=== PATIENT | male | born 1935 | race African-American/Black ===

== ENCOUNTER 2017-01-15 12:40 | Emergency (ER) | payer BC, MEDICAID ==
[~2017-01-15] VITALS: Ht 175.3 cm; Wt 75.0 kg
[2017-01-15] MEDS ORDERED: ACETAMINOPHEN WITH CODEINE 300/30MG TABLET PO ONE (14:00)
[2017-01-15] MEDS ORDERED: METHOCARBAMOL 500MG TABLET PO ONE (14:00)
[2017-01-15] MEDS ORDERED: KETOROLAC 60MG/2ML VIAL IM ONE (14:00)
[2017-01-15 16:26] VITALS: BP 138/74
== END 2017-01-15 16:28 | disposition home or self-care (01) ==
LOC: ER 12:41
DX: S30.1XXA Contusion of abdominal wall, initial encounter (principal); I10 Essential (primary) hypertension; Z98.1 Arthrodesis status; V43.52XA Car driver injured in collision with other type car in traffic accident, initial encounter; Y92.488 Other paved roadways as the place of occurrence of the external cause
CPT/HCPCS: 71101; 72100; 96372; 99284; J1885

== ENCOUNTER 2018-02-08 22:31 | Inpatient (IN) | payer BC, MEDICAID ==
[~2018-02-08] VITALS: Ht 180.3 cm; Wt 79.5 kg
[2018-02-09] MEDS ORDERED: LIDOCAINE HCL 1%/EPI 1:200,000 30 ML VIAL MC ONE
[2018-02-09 00:56] LABS: BASOPHILS % 0.1 % (0.0-2.0); HEMATOCRIT. 34.4 % (42.0-52.0); HEMOGLOBIN. 11.2 g/dL (14.0-18.0); LYMPHOCYTES % 4.6 % (20.0-50.0); MEAN CORPUSCULAR HEMOGLOBIN 27.2 pg (28.0-32.0); MEAN CORPUSCULAR VOLUME 83.6 fL (80.0-94.0); MEAN PLATELET VOLUME 8.4 fl (7.4-10.4); MONOCYTES % 6.7 % (2.0-8.0); NEUTROPHILS % 88.6 % (40.0-76.0); PLATELET 170 x1000/uL (130-400); RED BLOOD CELL COUNT 4.11 mill/uL (4.7-6.1); RED CELL DISTRIBUTION WIDTH 14.7 % (11.6-14.6)
[2018-02-09 00:59] LABS: CHLORIDE 109 mEq/L (98-107)
[2018-02-09 01:02] LABS: AMMONIA < 10 uMol/L (<32)
[2018-02-09 01:03] LABS: ETHANOL BLOOD < 10 mg/dL
[2018-02-09 01:15] LABS: PROTHROMBIN TIME 45.6 sec (9.4-11.6)
[2018-02-09 01:19] LABS: INR 4.4
[2018-02-09] MEDS ORDERED: VANCOMYCIN 1 G PREMIX 200 ML IV ONE (01:30)
[2018-02-09] MEDS ORDERED: PHYTONADIONE 10MG/ML AMP IM NR (01:45)
[2018-02-09] MEDS ORDERED: ACETAMINOPHEN 325MG TABLET PO ONE (01:45)
[2018-02-09 04:50] VITALS: BP 141/75
[2018-02-09] MEDS ORDERED: HYDROCODONE/ACETAMINOPHEN 5/325MG TABLET PO PRN (05:15)
[2018-02-09] MEDS ORDERED: MORPHINE SULFATE 2 MG/ML CPJ (NOT FOR IM USE) IV PRN (05:15)
[2018-02-09] MEDS: DEXT 5%/0.45% NACL KCL 20MEQ/L 1,000 ML IV SCH ×2 (06:36→15:25)
[2018-02-09 08:00] VITALS: BP 142/76
[2018-02-09 12:00] VITALS: BP 132/7
[2018-02-09 16:00] VITALS: BP 130/79
[2018-02-09] MEDS ORDERED: VANCOMYCIN 750 MG PREMIX 150 ML IV SCH (16:00)
[2018-02-09 16:49] VITALS: BP 130/79
== END 2018-02-09 18:25 | disposition short-term general hospital (02) | DRG 872 ==
LOC: ER 22:42 → 8WST 02-09 01:33 → EDBEDREQ 02-09 01:38 → EDBEDREQSVC 02-09 01:38 → ENRESERV 02-09 02:08 → SUPCPDRO 02-09 04:47
PROVIDERS: ADMIT Internal Medicine Critical Care Medicine; ATTEND Internal Medicine Critical Care Medicine
DX: A41.9 Sepsis, unspecified organism (principal); D68.9 Coagulation defect, unspecified; L03.116 Cellulitis of left lower limb; F03.90 Unspecified dementia, unspecified severity, without behavioral disturbance, psychotic disturbance, mood disturbance, and anxiety; N18.3 Chronic kidney disease, stage 3 (moderate); I12.9 Hypertensive chronic kidney disease with stage 1 through stage 4 chronic kidney disease, or unspecified chronic kidney disease; T45.515A Adverse effect of anticoagulants, initial encounter; Y92.89 Other specified places as the place of occurrence of the external cause; Z79.01 Long term (current) use of anticoagulants; Z86.711 Personal history of pulmonary embolism; Z86.718 Personal history of other venous thrombosis and embolism; Z87.891 Personal history of nicotine dependence; Z79.899 Other long term (current) drug therapy
CPT/HCPCS: 20610; 36415; 70450; 71045; 73700; 80053; 82140; 83605; 83690; 83880; 84443; 84484; 85025; 85610; 87040; 87070; 87205; 93005; 93970; 96365; 96372; 99285; G0482; J3370; J3430

== ENCOUNTER 2019-09-10 22:31 | Inpatient (IN) | payer BC, MEDICAID ==
[~2019-09-10] VITALS: Ht 180.3 cm; Wt 87.7 kg
[2019-09-10] MEDS ORDERED: SODIUM CHLORIDE 0.9% 1,000 ML IV ONE (23:34)
[2019-09-11] VITALS (58 sets, daily range): BP systolic 105–151; BP diastolic 62–92
[2019-09-11 00:25] LABS: BASOPHILS % 0.5 % (0.0-2.0); EOSINOPHILS % 0.5 % (0.0-5.0); HEMATOCRIT. 41.2 % (42.0-52.0); HEMOGLOBIN. 13.5 g/dL (14.0-18.0); LYMPHOCYTES % 12.2 % (20.0-50.0); MEAN CORPUSCULAR HEMOGLOBIN 27.8 pg (28.0-32.0); MEAN CORPUSCULAR VOLUME 85.1 fL (80.0-94.0); MEAN PLATELET VOLUME 8.9 fl (7.4-10.4); MONOCYTES % 4.7 % (2.0-8.0); NEUTROPHILS % 82.1 % (40.0-76.0); PLATELET 122 x1000/uL (130-400); RED BLOOD CELL COUNT 4.85 mill/uL (4.7-6.1); RED CELL DISTRIBUTION WIDTH 15.3 % (11.6-14.6)
[2019-09-11] MEDS ORDERED: OLANZAPINE 10 MG/VIAL IM NR (00:30)
[2019-09-11 00:31] LABS: CHLORIDE 105 mEq/L (98-107)
[2019-09-11 00:36] LABS: PROTHROMBIN TIME 48.3 sec (9.6-11.0)
[2019-09-11 00:46] LABS: INR 5.1
[2019-09-11] MEDS ORDERED: ADENOSINE 3 MG/ML 2ML VIAL IV ONE (01:00)
[2019-09-11] MEDS ORDERED: LORAZEPAM 2MG/ML CPJ IV ONE (01:00)
[2019-09-11] MEDS ORDERED: DIGOXIN 500MCG/2ML AMP IV ONE (01:30)
[2019-09-11] MEDS ORDERED: HYDRALAZINE 20MG/ML VIAL IV ONE (02:00)
[2019-09-11] MEDS ORDERED: MANNITOL 20% 250 ML IV ONE (03:00)
[2019-09-11] MEDS ORDERED: LEVETIRACETAM 500MG PREMIX 100 ML IV ONE (03:00)
[2019-09-11] MEDS ORDERED: DEXAMETHASONE 10 MG/ML VIAL IV ONE (03:00)
[2019-09-11] MEDS ORDERED: NICARDIPINE 100 MG in SODIUM CHLORIDE 0.9% 60 ML IV ONE (03:00)
[2019-09-11] MEDS ORDERED: SUCCINYLCHOLINE CHLORIDE 200MG/10ML IV ONE (03:30)
[2019-09-11 04:26] LABS: BG BASE EXCESS -0.2 mmol/L (-2.0-2.0); BG CARBOXYHEMOGLOBIN 0.3 % (0.5-1.5); BG FRACTION INSPIRED OXYGEN 50; BG HCO3 ACT 23.5 mmol/L (22.0-26.0); BG METHEMOGLOBIN 0.3 % (0.0-1.5); BG OXYHEMOGLOBIN 98.4 % (94.0-97.0); BG PCO2 35.7 mmHg (35.0-45.0); BG PH 7.437 (7.350-7.450); BG PO2 206.3 mmHg (75.0-100.0); BG SAMPLE SITE RIGHT RADIAL; BG TIDAL VOLUME(mL) 550 mL; BG TOTAL HEMOGLOBIN 13.4 g/dL (12.0-18.0); BG VENT MODE VENT - A/C; BG VENT RATE 12 set
[2019-09-11] MEDS ORDERED: MORPHINE SULFATE 2 MG/ML CPJ (NOT FOR IM USE) IV SCH (06:50)
[2019-09-11 08:31] LABS: HEMATOCRIT. 38.3 % (42.0-52.0); HEMOGLOBIN. 12.7 g/dL (14.0-18.0); MEAN CORPUSCULAR HEMOGLOBIN 27.9 pg (28.0-32.0); MEAN CORPUSCULAR VOLUME 84.2 fL (80.0-94.0); MEAN PLATELET VOLUME 9.2 fl (7.4-10.4); PLATELET 105 x1000/uL (130-400); RED BLOOD CELL COUNT 4.55 mill/uL (4.7-6.1); RED CELL DISTRIBUTION WIDTH 15.1 % (11.6-14.6)
[2019-09-11] MEDS ORDERED: NICARDIPINE 100 MG in SODIUM CHLORIDE 0.9% 60 ML IV PRN (09:00)
[2019-09-11 09:06] LABS: INR 1.7; PARTIAL THROMBOPLASTIN TIME 27.9 sec (23.4-31.0); PROTHROMBIN TIME 16.6 sec (9.6-11.0)
[2019-09-11] MEDS: DEXT 5%/LACTATED RINGERS 1,000 ML IV SCH (10:26)
[2019-09-11] MEDS: FAMOTIDINE 20MG/2ML VIAL IV SCH (10:26)
[2019-09-11] MEDS ORDERED: LEVETIRACETAM 500 MG in SODIUM CHLORIDE 0.9% 100 ML IV NR (10:30)
[2019-09-11 11:15] LABS: PLATELET ESTIMATE DECREASED
[2019-09-11] MEDS: DEXAMETHASONE 10 MG/ML VIAL IV SCH ×3 (12:12→23:24)
[2019-09-11] MEDS: CEFAZOLIN 1000MG PREMIX 50 ML IV SCH ×2 (13:52→21:43)
[2019-09-11] MEDS ORDERED: CEFAZOLIN SODIUM 1000MG/VIAL IV SCH (14:00)
[2019-09-11] MEDS: LEVETIRACETAM 500 MG in SODIUM CHLORIDE 0.9% 100 ML IV SCH (20:38)
[2019-09-12] VITALS (94 sets, daily range): BP systolic 100–156; BP diastolic 49–90
[2019-09-12] MEDS: DEXT 5%/LACTATED RINGERS 1,000 ML IV SCH (05:09)
[2019-09-12 06:04] LABS: HEMATOCRIT. 36.1 % (42.0-52.0); HEMOGLOBIN. 11.9 g/dL (14.0-18.0); INR 2.5; MEAN CORPUSCULAR HEMOGLOBIN 27.6 pg (28.0-32.0); MEAN CORPUSCULAR VOLUME 83.9 fL (80.0-94.0); MEAN PLATELET VOLUME 9.1 fl (7.4-10.4); PLATELET 115 x1000/uL (130-400)
[2019-09-12 06:09] LABS: CHLORIDE 111 mEq/L (98-107)
[2019-09-12] MEDS: DEXAMETHASONE 10 MG/ML VIAL IV SCH ×4 (06:23→23:45)
[2019-09-12] MEDS: CEFAZOLIN 1000MG PREMIX 50 ML IV SCH (06:23)
[2019-09-12 07:49] LABS: PLATELET ESTIMATE SLIGHTLY DECREASED
[2019-09-12] MEDS: FAMOTIDINE 20MG/2ML VIAL IV SCH (09:01)
[2019-09-12] MEDS: LEVETIRACETAM 500 MG in SODIUM CHLORIDE 0.9% 100 ML IV SCH ×2 (09:01→21:21)
[2019-09-12 09:19] LABS: BG BASE EXCESS 3.6 mmol/L (-2.0-2.0); BG CARBOXYHEMOGLOBIN 0.4 % (0.5-1.5); BG DEOXYHEMOGLOBIN 0.8 % (0.0-5.0); BG FRACTION INSPIRED OXYGEN 40; BG HCO3 ACT 26.9 mmol/L (22.0-26.0); BG METHEMOGLOBIN 0.2 % (0.0-1.5); BG OXYGEN SATURATION 99.2 % (92.0-98.5); BG OXYHEMOGLOBIN 98.6 % (94.0-97.0); BG PCO2 36.3 mmHg (35.0-45.0); BG PH 7.488 (7.350-7.450); BG PO2 175.3 mmHg (75.0-100.0); BG SAMPLE SITE RIGHT RADIAL; BG TIDAL VOLUME(mL) 550 mL; BG TOTAL HEMOGLOBIN 12.9 g/dL (12.0-18.0); BG VENT MODE VENT - A/C; BG VENT RATE 12 set
[2019-09-12] MEDS: ALBUTEROL (0.083%) 2.5MG/3ML NEB HHN SCH ×3 (11:02→20:51)
[2019-09-12] MEDS: NITROPRUSSIDE 50 MG in SODIUM CHLORIDE 0.9% 250 ML IV PRN (15:26)
[2019-09-12] MEDS ORDERED: LABETALOL 5MG/ML SYR 20 MG/4 ML SYRINGE IV PRN (18:30)
[2019-09-13] VITALS (100 sets, daily range): BP systolic 102–179; BP diastolic 57–96
[2019-09-13] MEDS ORDERED: LABETALOL 5MG/ML SYR 20 MG/4 ML SYRINGE IV SCH (01:00)
[2019-09-13] MEDS: DEXT 5%/LACTATED RINGERS 1,000 ML IV SCH (01:44)
[2019-09-13] MEDS: ALBUTEROL (0.083%) 2.5MG/3ML NEB HHN SCH ×4 (02:07→21:28)
[2019-09-13] MEDS: DEXAMETHASONE 10 MG/ML VIAL IV SCH (05:47)
[2019-09-13 05:52] LABS: HEMATOCRIT. 34.7 % (42.0-52.0); HEMOGLOBIN. 11.4 g/dL (14.0-18.0); MEAN CORPUSCULAR HEMOGLOBIN 27.7 pg (28.0-32.0); MEAN CORPUSCULAR VOLUME 84.6 fL (80.0-94.0); MEAN PLATELET VOLUME 9.2 fl (7.4-10.4); PLATELET 101 x1000/uL (130-400); RED CELL DISTRIBUTION WIDTH 15.2 % (11.6-14.6)
[2019-09-13 05:58] LABS: INR 1.9
[2019-09-13 06:01] LABS: CHLORIDE 114 mEq/L (98-107)
[2019-09-13 08:11] LABS: BG BASE EXCESS 4.8 mmol/L (-2.0-2.0); BG CARBOXYHEMOGLOBIN 0.3 % (0.5-1.5); BG DEOXYHEMOGLOBIN 1.5 % (0.0-5.0); BG METHEMOGLOBIN 0.2 % (0.0-1.5); BG OXYGEN SATURATION 98.5 % (92.0-98.5); BG PH 7.544 (7.350-7.450); BG PO2 145.2 mmHg (75.0-100.0); BG SAMPLE SITE RIGHT RADIAL; BG TIDAL VOLUME(mL) 550 mL; BG TOTAL HEMOGLOBIN 11.7 g/dL (12.0-18.0); BG VENT MODE VENT - A/C; BG VENT RATE 12 set
[2019-09-13] MEDS: FAMOTIDINE 20MG/2ML VIAL IV SCH (08:48)
[2019-09-13] MEDS: LEVETIRACETAM 500 MG in SODIUM CHLORIDE 0.9% 100 ML IV SCH ×2 (08:48→20:52)
[2019-09-13] MEDS ORDERED: POTASSIUM CHLORIDE INJ 40 MEQ in DEXT 5% WATER 250 ML IV SCH (09:00)
[2019-09-13] MEDS ORDERED: PHYTONADIONE 10MG/ML AMP IM NR (09:30)
[2019-09-13 10:25] LABS: PLATELET ESTIMATE DECREASED
[2019-09-13] MEDS: HYDRALAZINE 20MG/ML VIAL IV PRN (11:15)
[2019-09-13] MEDS: DEXAMETHASONE 4MG/ML 1ML VIAL IV SCH ×3 (11:39→23:29)
[2019-09-13] MEDS: NITROPRUSSIDE 50 MG in SODIUM CHLORIDE 0.9% 250 ML IV PRN ×2 (11:52→20:53)
[2019-09-13] MEDS: MORPHINE SULFATE 2 MG/ML CPJ (NOT FOR IM USE) IV PRN (12:24)
[2019-09-13] MEDS: HYDRALAZINE HCL 50MG TABLET NG SCH (20:11)
[2019-09-13] MEDS: METOPROLOL TARTRATE 25MG TABLET NG SCH (20:11)
[2019-09-13] MEDS: ATORVASTATIN CALCIUM 20MG TABLET NG SCH (20:11)
[2019-09-14] VITALS (104 sets, daily range): BP systolic 90–195; BP diastolic 53–105
[2019-09-14] MEDS: DEXT 5%/LACTATED RINGERS 1,000 ML IV SCH ×3 (01:07→22:13)
[2019-09-14] MEDS: NITROPRUSSIDE 50 MG in SODIUM CHLORIDE 0.9% 250 ML IV PRN ×4 (03:11→22:32)
[2019-09-14] MEDS: ALBUTEROL (0.083%) 2.5MG/3ML NEB HHN SCH ×4 (03:20→20:09)
[2019-09-14] MEDS: DEXAMETHASONE 4MG/ML 1ML VIAL IV SCH ×3 (05:20→17:26)
[2019-09-14 06:23] LABS: HEMATOCRIT. 32.3 % (42.0-52.0); HEMOGLOBIN. 10.6 g/dL (14.0-18.0); MEAN CORPUSCULAR HEMOGLOBIN 27.8 pg (28.0-32.0); MEAN CORPUSCULAR VOLUME 84.7 fL (80.0-94.0); MEAN PLATELET VOLUME 9.6 fl (7.4-10.4); PLATELET 115 x1000/uL (130-400); RED BLOOD CELL COUNT 3.81 mill/uL (4.7-6.1); RED CELL DISTRIBUTION WIDTH 15.2 % (11.6-14.6)
[2019-09-14 06:24] LABS: INR 1.7; PROTHROMBIN TIME 16.8 sec (9.6-11.0)
[2019-09-14 06:28] LABS: CHLORIDE 114 mEq/L (98-107)
[2019-09-14] MEDS: HYDRALAZINE 20MG/ML VIAL IV PRN ×2 (09:05→17:26)
[2019-09-14] MEDS: FAMOTIDINE 20MG/2ML VIAL IV SCH (09:05)
[2019-09-14] MEDS: LEVETIRACETAM 500 MG in SODIUM CHLORIDE 0.9% 100 ML IV SCH ×2 (09:05→21:35)
[2019-09-14] MEDS: HYDRALAZINE HCL 50MG TABLET NG SCH ×2 (09:06→21:34)
[2019-09-14] MEDS: METOPROLOL TARTRATE 25MG TABLET NG SCH ×2 (09:06→21:34)
[2019-09-14 09:11] LABS: BG BASE EXCESS 0.4 mmol/L (-2.0-2.0); BG CARBOXYHEMOGLOBIN 0.1 % (0.5-1.5); BG DEOXYHEMOGLOBIN 2.7 % (0.0-5.0); BG FRACTION INSPIRED OXYGEN 35; BG METHEMOGLOBIN 0.2 % (0.0-1.5); BG OXYGEN SATURATION 97.3 % (92.0-98.5); BG PCO2 30.9 mmHg (35.0-45.0); BG PO2 92.4 mmHg (75.0-100.0); BG SAMPLE SITE RIGHT RADIAL; BG TIDAL VOLUME(mL) 500 mL; BG TOTAL HEMOGLOBIN 11.8 g/dL (12.0-18.0); BG VENT MODE VENT - A/C; BG VENT RATE 10 set
[2019-09-14] MEDS ORDERED: LIDOCAINE HCL 1% 20ML VIAL (Pyxis) INJ ONE (09:54)
[2019-09-14] MEDS: MORPHINE SULFATE 2 MG/ML CPJ (NOT FOR IM USE) IV PRN (10:03)
[2019-09-14 14:54] LABS: PLATELET ESTIMATE SLIGHTLY DECREASED
[2019-09-14] MEDS: ATORVASTATIN CALCIUM 20MG TABLET NG SCH (21:34)
[2019-09-15] VITALS (99 sets, daily range): BP systolic 93–176; BP diastolic 58–115
[2019-09-15] MEDS: DEXAMETHASONE 4MG/ML 1ML VIAL IV SCH ×4 (00:06→18:06)
[2019-09-15] MEDS: ALBUTEROL (0.083%) 2.5MG/3ML NEB HHN SCH ×4 (02:10→19:58)
[2019-09-15] MEDS: MORPHINE SULFATE 2 MG/ML CPJ (NOT FOR IM USE) IV PRN (02:11)
[2019-09-15] MEDS: NITROPRUSSIDE 100 MG in DEXT 5% WATER 246 ML IV PRN ×2 (04:09→16:00)
[2019-09-15 04:18] LABS: CHLORIDE 116 mEq/L (98-107)
[2019-09-15] MEDS: HYDRALAZINE 20MG/ML VIAL IV PRN (04:21)
[2019-09-15 07:35] LABS: HEMATOCRIT. 31.1 % (42.0-52.0); HEMOGLOBIN. 10.3 g/dL (14.0-18.0); MEAN CORPUSCULAR HEMOGLOBIN 27.7 pg (28.0-32.0); MEAN PLATELET VOLUME 9.4 fl (7.4-10.4); PLATELET 110 x1000/uL (130-400); RED BLOOD CELL COUNT 3.71 mill/uL (4.7-6.1); RED CELL DISTRIBUTION WIDTH 15.4 % (11.6-14.6)
[2019-09-15] MEDS: LEVETIRACETAM 500 MG in SODIUM CHLORIDE 0.9% 100 ML IV SCH ×2 (09:01→20:50)
[2019-09-15] MEDS: FAMOTIDINE 20MG/2ML VIAL IV SCH (09:01)
[2019-09-15] MEDS: HYDRALAZINE HCL 50MG TABLET NG SCH ×2 (09:09→20:51)
[2019-09-15] MEDS: METOPROLOL TARTRATE 25MG TABLET NG SCH ×2 (09:09→20:51)
[2019-09-15 12:48] LABS: PLATELET ESTIMATE SLIGHTLY DECREASED
[2019-09-15] MEDS: ATORVASTATIN CALCIUM 20MG TABLET NG SCH (20:51)
[2019-09-16] VITALS (88 sets, daily range): BP systolic 71–215; BP diastolic 50–142
[2019-09-16] MEDS: DEXAMETHASONE 4MG/ML 1ML VIAL IV SCH ×2 (00:07→05:09)
[2019-09-16] MEDS: ALBUTEROL (0.083%) 2.5MG/3ML NEB HHN SCH ×4 (02:26→20:35)
[2019-09-16] MEDS: NITROPRUSSIDE 100 MG in DEXT 5% WATER 246 ML IV PRN (05:09)
[2019-09-16 05:56] LABS: HEMATOCRIT. 31.7 % (42.0-52.0); HEMOGLOBIN. 10.5 g/dL (14.0-18.0); MEAN CORPUSCULAR VOLUME 84.7 fL (80.0-94.0); MEAN PLATELET VOLUME 10.2 fl (7.4-10.4); PLATELET 89 x1000/uL (130-400); RED BLOOD CELL COUNT 3.75 mill/uL (4.7-6.1); RED CELL DISTRIBUTION WIDTH 15.5 % (11.6-14.6)
[2019-09-16 06:08] LABS: CHLORIDE 117 mEq/L (98-107); INR 1.1; PROTHROMBIN TIME 11.7 sec (9.6-11.0)
[2019-09-16 07:49] LABS: PLATELET ESTIMATE DECREASED
[2019-09-16 09:16] LABS: BG BASE EXCESS 4.6 mmol/L (-2.0-2.0); BG CARBOXYHEMOGLOBIN 0.3 % (0.5-1.5); BG DEOXYHEMOGLOBIN 3.4 % (0.0-5.0); BG FRACTION INSPIRED OXYGEN 35; BG METHEMOGLOBIN 0.4 % (0.0-1.5); BG OXYGEN SATURATION 96.6 % (92.0-98.5); BG OXYHEMOGLOBIN 95.9 % (94.0-97.0); BG PCO2 32.3 mmHg (35.0-45.0); BG PO2 83.2 mmHg (75.0-100.0); BG SAMPLE SITE RIGHT RADIAL; BG TOTAL HEMOGLOBIN 10.5 g/dL (12.0-18.0); BG VENT MODE VENT - A/C; BG VENT RATE 500 set
[2019-09-16] MEDS: LEVETIRACETAM 500 MG in SODIUM CHLORIDE 0.9% 100 ML IV SCH ×2 (09:25→21:34)
[2019-09-16] MEDS: METOPROLOL TARTRATE 25MG TABLET NG SCH ×2 (09:26→21:00)
[2019-09-16] MEDS: HYDRALAZINE HCL 50MG TABLET NG SCH ×2 (09:26→21:00)
[2019-09-16] MEDS: FAMOTIDINE 20MG/2ML VIAL IV SCH (09:26)
[2019-09-16] MEDS: MORPHINE SULFATE 250 MG in DEXT 5% WATER 240 ML IV SCH (11:02)
[2019-09-16] MEDS: HYDRALAZINE 20MG/ML VIAL IV PRN (17:57)
[2019-09-17] VITALS (44 sets, daily range): BP systolic 54–98; BP diastolic 35–63
[2019-09-17] MEDS: ALBUTEROL (0.083%) 2.5MG/3ML NEB HHN SCH ×2 (02:16→08:47)
[2019-09-17 06:08] LABS: BASOPHILS % 0.1 % (0.0-2.0); EOSINOPHILS % 0.1 % (0.0-5.0); HEMATOCRIT. 31.3 % (42.0-52.0); HEMOGLOBIN. 10.3 g/dL (14.0-18.0); LYMPHOCYTES % 10.2 % (20.0-50.0); MEAN CORPUSCULAR HEMOGLOBIN 28.2 pg (28.0-32.0); MEAN CORPUSCULAR VOLUME 85.2 fL (80.0-94.0); MEAN PLATELET VOLUME 9.2 fl (7.4-10.4); MONOCYTES % 7.3 % (2.0-8.0); NEUTROPHILS % 82.3 % (40.0-76.0); PLATELET 98 x1000/uL (130-400); RED BLOOD CELL COUNT 3.67 mill/uL (4.7-6.1); RED CELL DISTRIBUTION WIDTH 15.2 % (11.6-14.6)
[2019-09-17] MEDS: HYDRALAZINE HCL 50MG TABLET NG SCH (08:09)
[2019-09-17] MEDS: METOPROLOL TARTRATE 25MG TABLET NG SCH (08:09)
[2019-09-17] MEDS: LEVETIRACETAM 500 MG in SODIUM CHLORIDE 0.9% 100 ML IV SCH (08:17)
[2019-09-17] MEDS: FAMOTIDINE 20MG/2ML VIAL IV SCH (08:17)
[2019-09-17] MEDS: MORPHINE SULFATE 250 MG in DEXT 5% WATER 240 ML IV SCH (09:03)
== END 2019-09-17 10:50 | disposition expired | DRG 23 ==
LOC: ER 22:31 → MICUNO 09-11 02:53 → ENRESERV 09-11 06:28
PROVIDERS: ADMIT Internal Medicine Critical Care Medicine; ATTEND Internal Medicine Critical Care Medicine
PROC: 009600Z Drainage of Cerebral Ventricle with Drainage Device, Open Approach (ICD-10-PCS; principal; 2019-09-11)
PROC: 5A1955Z Respiratory Ventilation, Greater than 96 Consecutive Hours (ICD-10-PCS; 2019-09-11)
PROC: 30233K1 Transfusion of Nonautologous Frozen Plasma into Peripheral Vein, Percutaneous Approach (ICD-10-PCS; 2019-09-11)
PROC: 0BH17EZ Insertion of Endotracheal Airway into Trachea, Via Natural or Artificial Opening (ICD-10-PCS; 2019-09-11)
PROC: 4A103BD Monitoring of Intracranial Pressure, Percutaneous Approach (ICD-10-PCS; 2019-09-11)
PROC: 02HV33Z Insertion of Infusion Device into Superior Vena Cava, Percutaneous Approach (ICD-10-PCS; 2019-09-14)
PROC: B548ZZA Ultrasonography of Superior Vena Cava, Guidance (ICD-10-PCS; 2019-09-14)
DX: I61.5 Nontraumatic intracerebral hemorrhage, intraventricular (principal); J96.01 Acute respiratory failure with hypoxia; G93.6 Cerebral edema; D68.9 Coagulation defect, unspecified; E87.3 Alkalosis; G91.1 Obstructive hydrocephalus; G93.40 Encephalopathy, unspecified; I16.1 Hypertensive emergency; I47.1 Supraventricular tachycardia; I60.9 Nontraumatic subarachnoid hemorrhage, unspecified; I61.4 Nontraumatic intracerebral hemorrhage in cerebellum; I10 Essential (primary) hypertension; T45.515A Adverse effect of anticoagulants, initial encounter; I45.5 Other specified heart block; E87.6 Hypokalemia; Z51.5 Encounter for palliative care; R26.81 Unsteadiness on feet; K30 Functional dyspepsia; Z88.8 Allergy status to other drugs, medicaments and biological substances; Z79.01 Long term (current) use of anticoagulants; Z86.711 Personal history of pulmonary embolism; Z86.718 Personal history of other venous thrombosis and embolism; Z79.899 Other long term (current) drug therapy
CPT/HCPCS: 31500; 36415; 36600; 71045; 76937; 80048; 82375; 82805; 83605; 83721; 83735; 83880; 84484; 86850; 86900; 86927; 93005; 93970; 94002; 94003; 99291; A6261; C1725; J0153; J0360; J0690; J1100; J1160; J1953; J2060; J2270; J2274; J3430; J3480; J3490; J7030; J7040; J7050; J7060; J7121; J7611; P9017; A4315